=== PATIENT | male | born 1950 | race Caucasian/White ===

== ENCOUNTER → 2016-11-22 | Outpatient (CLI) | payer MEDICARE, OTHER ==
[~2016-11-22] MED LIST: ALEVE220 MG PO; ALLEGRA 180MG180 MG PO; AMOXICILLIN 8751 TAB PO; ASPIR-LOW81 MG PO; ASPIRIN E.C. 8181 MG PO; BYSTOLIC5 MG PO; CARDURA 2MG2 MG PO; CELEBREX; CELEBREX100 MG PO; CLARITIN; CLARITIN10 MG PO; COZAAR100 MG PO; DECADRON 1MG TAB1 MG PO; FLEXERIL 1010 MG/TAB PO; LABETALOL100 MG PO; LORTAB 5/500 501 TAB PO; LOTREL 10 MG-201 CAP PO; MILK OF MA400 MG/52 PO; MOTRIN 800800 MG/TAB PO; NAPROSYN500 MG PO; NORCO 325 MG-51 TAB PO; NORCO 325 MG-7.1 TAB PO; NORMODYNE100 MG PO; NORVASC 10MG10 MG PO; OCUVITE1 TA1 PO; PERCOCET 325 MG1 TAB PO; PRIL40 PO; PRILOSEC 20MG20 MG PO; PROAIR HFA0.09 MG/AC IH; ROXICODONE 55 MG/TAB PO; RT SPIRIVA18 MCG IH; SENOKOT8.6 MG PO; TYLENOL 500MG500 MG PO; VICODIN 5/5001 UDTAB PO; XARELTO10 MG PO
== END ==
LOC: MC.RAD 13:49
DX: N62 Hypertrophy of breast (principal)

== ENCOUNTER → 2016-12-05 | Outpatient (CLI) | payer MEDICARE, OTHER | LOC: COL.PUL 12:52 | DX: J44.9 Chronic obstructive pulmonary disease, unspecified (principal); Z87.891 Personal history of nicotine dependence ==

== ENCOUNTER → 2016-12-08 | Outpatient (CLI) | payer MEDICARE, OTHER | LOC: COL.RAD 10:30 | DX: M25.552 Pain in left hip (principal) | CPT/HCPCS: J3301; Q9967 ==

== ENCOUNTER → 2017-02-06 | Outpatient (CLI) | payer MEDICARE, OTHER | LOC: COL.RAD 02-02 13:30 | DX: M54.5 Low back pain (principal); M25.552 Pain in left hip; M48.06 Spinal stenosis, lumbar region; Z98.890 Other specified postprocedural states ==

== ENCOUNTER → 2017-10-04 | Outpatient (CLI) | payer MEDICARE, OTHER | LOC: SUN.DIA 09-14 13:38 | DX: E11.9 Type 2 diabetes mellitus without complications (principal); E78.5 Hyperlipidemia, unspecified; I11.9 Hypertensive heart disease without heart failure; E66.9 Obesity, unspecified; Z68.39 Body mass index [BMI] 39.0-39.9, adult; Z71.3 Dietary counseling and surveillance; Z87.891 Personal history of nicotine dependence | CPT/HCPCS: G0108 ==

== ENCOUNTER → 2017-11-10 | Outpatient (CLI) | payer MEDICARE, OTHER | LOC: SUN.DIA | DX: E11.9 Type 2 diabetes mellitus without complications (principal); E78.5 Hyperlipidemia, unspecified; I11.9 Hypertensive heart disease without heart failure; E66.9 Obesity, unspecified; Z68.41 Body mass index [BMI] 40.0-44.9, adult; Z71.3 Dietary counseling and surveillance; Z87.891 Personal history of nicotine dependence ==

== ENCOUNTER → 2017-11-20 | Outpatient (CLI) | payer MEDICARE, OTHER | LOC: COL.VAS 10:13 | DX: I08.3 Combined rheumatic disorders of mitral, aortic and tricuspid valves (principal); R06.02 Shortness of breath ==

== ENCOUNTER 2017-12-08 11:09 | Day surgery (SDC) | payer MEDICARE, OTHER ==
[2017-12-08] VITALS (10 sets, daily range): BP systolic 127–153; BP diastolic 58–75; PULSE 76–86; TEMP 97.7–98.5
[~2017-12-08] VITALS: Ht 177.8 cm; Wt 124.4 kg
[2017-12-08] MEDS ORDERED: FLEXERIL 1010 MG/TAB PO (12:15)
[2017-12-08] MEDS ORDERED: ALLEGRA 180MG180 MG PO (12:17)
[2017-12-08] MEDS ORDERED: FLONASEALLERGY NS (12:18)
[2017-12-08] MEDS ORDERED: CLARITIN 1010 MG/TAB PO (12:22)
[2017-12-08] MEDS ORDERED: HYZAAR 25 MG-101 TAB PO (12:27)
[2017-12-08] MEDS ORDERED: GLUCOPHAGE1000 MG PO (12:29)
[2017-12-08] MEDS ORDERED: BYSTOLIC10 MG PO (12:30)
[2017-12-08] MEDS ORDERED: VIAGRA50 M1 (12:32)
[2017-12-08] MEDS ORDERED: KENALOG-1010 MG/ML TOP (12:34)
[2017-12-08] MEDS ORDERED: TRELEGY ELLIPT1 EACH IH (12:35)
[2017-12-08] MEDS ORDERED: JANUVIA 100MG100 MG PO (12:35)
[2017-12-09] VITALS (7 sets, daily range): BP systolic 136–177; BP diastolic 64–80; PULSE 74–88; TEMP 97.3–99
[2017-12-10 03:54] VITALS: BP 148/72; PULSE 83; TEMP 98.8
[2017-12-10 08:21] VITALS: BP 151/67; PULSE 86; TEMP 98.1
== END 2017-12-10 11:20 | disposition home or self-care (01) ==
LOC: SDCO 11:09 → JCC 14:50 → SDCO 12-10 11:20
DX: N40.1 Benign prostatic hyperplasia with lower urinary tract symptoms (principal); N13.8 Other obstructive and reflux uropathy; R35.0 Frequency of micturition; R39.12 Poor urinary stream; I10 Essential (primary) hypertension; Z87.891 Personal history of nicotine dependence
CPT/HCPCS: OP; J0690; J2270; J2405; J2704; J3010; J3480; J7030

== ENCOUNTER 2018-03-06 16:27 | Observation (INO) | payer MEDICARE, OTHER ==
[2018-03-06] VITALS (9 sets, daily range): BP systolic 98–165; BP diastolic 63–99; PULSE 81–95; TEMP 98
[~2018-03-06] VITALS: Ht 177.8 cm; Wt 123.9 kg
[~2018-03-06 16:27] MED LIST changes: +BYSTOLIC10 MG PO; +CLARITIN 1010 MG/TAB PO; +FLONASEALLERGY NS; +GLUCOPHAGE1000 MG PO; +HYZAAR 25 MG-101 TAB PO; +JANUVIA 100MG100 MG PO; +KENALOG-1010 MG/ML TOP; +TRELEGY ELLIPT1 EACH IH; +VIAGRA50 M1
[2018-03-06] MEDS ORDERED: PROAIR HFA0.09 MG/AC IH (17:45)
[2018-03-06] MEDS ORDERED: CARDURA 2MG2 MG PO (17:57)
[2018-03-06] MEDS ORDERED: BIOFREEZE 0.2%-1 GE1 TOP (17:58)
[2018-03-06] MEDS ORDERED: PERCOCET 325 MG1 TAB PO (17:59)
[2018-03-06] MEDS ORDERED: FLOMAX 0.40.4 MG/CAP PO (17:59)
[2018-03-06] MEDS ORDERED: TRIAM OI 15 0.025 TOP (18:03)
[2018-03-06] MEDS ORDERED: VTAMINC250TA PO (18:03)
[2018-03-07] VITALS: BP 143/65; PULSE 89; TEMP 97.3
[2018-03-07 04:00] VITALS: BP 124/65; PULSE 82; TEMP 97.5
[2018-03-07 07:47] VITALS: BP 138/67; PULSE 84; TEMP 98.6
== END 2018-03-07 13:26 | disposition home or self-care (01) ==
LOC: SDCO 16:27 → SURG 16:28 → SDCO 17:00 → SURG 18:04
DX: N32.0 Bladder-neck obstruction (principal); R33.9 Retention of urine, unspecified; L50.0 Allergic urticaria; E11.9 Type 2 diabetes mellitus without complications; I10 Essential (primary) hypertension; N41.9 Inflammatory disease of prostate, unspecified; R33.8 Other retention of urine; J44.9 Chronic obstructive pulmonary disease, unspecified; G47.33 Obstructive sleep apnea (adult) (pediatric); M19.90 Unspecified osteoarthritis, unspecified site; Z96.653 Presence of artificial knee joint, bilateral; Z79.84 Long term (current) use of oral hypoglycemic drugs; Z88.6 Allergy status to analgesic agent; Z87.891 Personal history of nicotine dependence
CPT/HCPCS: C1769; G0378; J0690; J1100; J2405; J2704; J3010; J3301

== ENCOUNTER → 2018-03-22 | Outpatient (CLI) | payer MEDICARE, OTHER ==
[~2018-03-22] MED LIST changes: +BIOFREEZE 0.2%-1 GE1 TOP; +FLOMAX 0.40.4 MG/CAP PO; +TRIAM OI 15 0.025 TOP; +VTAMINC250TA PO
== END ==
LOC: COL.VAS 08:46
DX: I73.9 Peripheral vascular disease, unspecified (principal)

== ENCOUNTER 2018-12-01 20:18 | Emergency (ER) | payer MEDICARE, OTHER ==
[~2018-12-01] VITALS: Ht 177.8 cm; Wt 123.2 kg
[2018-12-01 20:33] VITALS: BP 139/75; TEMP 97
[2018-12-01 21:18] VITALS: PULSE 106
== END 2018-12-01 21:15 | disposition home or self-care (01) ==
LOC: COL.ER 20:18
DX: S61.214A Laceration without foreign body of right ring finger without damage to nail, initial encounter (principal); W25.XXXA Contact with sharp glass, initial encounter; Y92.009 Unspecified place in unspecified non-institutional (private) residence as the place of occurrence of the external cause

== ENCOUNTER 2021-01-23 13:59 | Emergency (ER) | payer MEDICARE, OTHER ==
[~2021-01-23] VITALS: Ht 25.4 cm; Wt 108.6 kg
[2021-01-23 14:09] VITALS: TEMP 97.9
[2021-01-23 14:57] LABS: BASO % 0.2 % (0.0-2.0); EOS # 0.2 (0.0-0.7); GRAN # 5.4 (1.4-6.5); GRAN % 66.7 % (42.2-75.2); HEMATOCRIT 37.8 % (42.0-52.0); HEMOGLOBIN 12.2 g/dl (13.5-18.0); LYMPH # 1.8 (1.2-3.4); LYMPH % 22.4 % (20.0-51.0); MEAN CELL VOLUME 79 fl (80.0-100.0); MEAN CORPUSCULAR HEMOGLOBIN 26 pg (27.0-31.0); MEAN CORPUSCULAR HGB CONC 32 g/dl (33.0-37.0); MONO # 0.7 (0.1-0.6); MONO % 8.3 % (1.7-9.3); PLATELET COUNT 263 K/mm3 (130-400); RED BLOOD COUNT 4.77 M/mm3 (4.20-5.60); REDCELL DISTRIBUTION WIDTH-CV 15.3 % (11.5-14.5)
[2021-01-23 15:09] LABS: ALANINE AMINOTRANSFERASE 26 U/L (4-49); ALKALINE PHOSPHATASE 40 U/L (50-136); ANION GAP 9 mmol/L (7-16); AST,SGOT 40 U/L (15-37); BILIRUBIN,TOTAL 0.8 mg/dL (0.0-1.0); BLOOD UREA NITROGEN 12 mg/dL (9-20); CALCIUM 8.9 mg/dL (8.4-10.2); CARBON DIOXIDE 22 mmol/L (22-30); CHLORIDE 103 mmol/L (98-107); CREATININE, serum 0.76 (0.66-1.25); GLUCOSE 99 mg/dL (74-106); POTASSIUM 4.4 mmol/L (3.4-5.0); SODIUM 133 mmol/L (137-145); TOTAL PROTEIN 6.5 gm/dL (6.4-8.2)
[2021-01-23 15:23] LABS: TROPONIN-I < 0.012 ng/mL (0.000-0.035)
[2021-01-23 15:44] LABS: ALBUMIN 3.7 gm/dL (3.5-5.0)
[2021-01-23 16:48] VITALS: BP 141/66; PULSE 84
== END 2021-01-23 16:48 | disposition home or self-care (01) ==
LOC: COL.ER 13:59
PROVIDERS: Emergency Medicine
DX: M79.89 Other specified soft tissue disorders (principal); R79.89 Other specified abnormal findings of blood chemistry; R60.0 Localized edema; I10 Essential (primary) hypertension; E11.9 Type 2 diabetes mellitus without complications; J44.9 Chronic obstructive pulmonary disease, unspecified; Z87.891 Personal history of nicotine dependence; Z96.653 Presence of artificial knee joint, bilateral; Z88.6 Allergy status to analgesic agent; Z79.84 Long term (current) use of oral hypoglycemic drugs; Z79.51 Long term (current) use of inhaled steroids; Z79.899 Other long term (current) drug therapy
CPT/HCPCS: J1940

== ENCOUNTER 2021-08-24 07:03 | Day surgery (SDC) | payer MEDICARE, OTHER ==
[~2021-08-24] VITALS: Ht 177.8 cm; Wt 121.2 kg
[2021-08-24] VITALS (148 sets, daily range): BP systolic 138–176; BP diastolic 76–96; PULSE 82–90; TEMP 97.6; O2SAT 86–97
[~2021-08-24 07:03] MED LIST changes: +VIAGRA100 M1 PO; -VIAGRA50 M1
[2021-08-24 08:31] LABS: HEMOGLOBIN 11.9 g/dl (13.5-18.0); MEAN CELL VOLUME 81 fl (80.0-100.0); MEAN CORPUSCULAR HEMOGLOBIN 26 pg (27-31); MEAN CORPUSCULAR HGB CONC 32 g/dl (33.0-37.0); MEAN PLATELET VOLUME 9.8 fl (7.4-10.4); PLATELET COUNT 209 K/mm3 (130-400); RED BLOOD COUNT 4.57 M/mm3 (4.20-5.60); REDCELL DISTRIBUTION WIDTH-CV 16.7 % (11.5-14.5)
[2021-08-24 08:33] LABS: HEMATOCRIT 36.8 % (42.0-52.0)
[2021-08-24 08:43] LABS: INR 1.1 (0.8-3.0); PROTHROMBIN TIME 12.5 SECONDS (9.7-12.8)
[2021-08-24 08:45] LABS: CALCIUM 8.5 mg/dL (8.4-10.2); CREATININE, serum 0.86 mg/dL (0.72-1.25); POTASSIUM 4.7 mmol/L (3.5-4.5)
[2021-08-24 08:45] LABS: PARTIAL THROMBOPLASTIN TIME 29.8 SECONDS (26.0-37.0)
[2021-08-24] MEDS ORDERED: ZEBETA10 MG PO (09:05)
[2021-08-24] MEDS ORDERED: HYGROTON 2525 MG/TAB PO (09:09)
[2021-08-24] MEDS ORDERED: PEPCID 20MG TAB20 MG PO (09:12)
[2021-08-24] MEDS ORDERED: RT SPIRIVA18 MCG IH (09:15)
[2021-08-24] MEDS ORDERED: ALTACE 10MG TAB10 MG PO (09:15)
[2021-08-24] MEDS ORDERED: K-DUR20 MEQ PO (09:16)
[2021-08-24] MEDS ORDERED: SINGULAIR 110 MG/TAB PO (09:17)
[2021-08-24] MEDS ORDERED: RT ADVAIR 228 DISKUS IH (09:18)
[2021-08-24] MEDS ORDERED: REQUIP 1MG T1 MG/TAB PO (09:19)
[2021-08-24] MEDS ORDERED: MAG-OX 400400 MG/TAB PO (09:20)
[2021-08-24] MEDS ORDERED: APRESOLINE50 MG PO ×2 (09:21→11:23)
[2021-08-24] MEDS ORDERED: NEURONTIN100 MG/CAP PO (09:22)
[2021-08-24] MEDS ORDERED: NEURONTIN300 MG/CAP PO (09:23)
[2021-08-24] MEDS ORDERED: LASIX 20MG TABL20 MG PO (09:24)
[2021-08-24] MEDS ORDERED: EPIPEN 2-PAK1 MG/ML IM (09:24)
[2021-08-24] MEDS ORDERED: TRULICITY0.75 MG/0. SQ (09:24)
[2021-08-24] MEDS ORDERED: CYCLOSPORINE100 MG PO (09:25)
--- NOTE | 2021-08-24 09:32 | NUR ---
SEE MERGE DOCUMENTATION FOR MEDICATION ADMINISTRATION AND INTRA/POST PROCEDURE SEDATION ASSESSMETNS.
--- NOTE | 2021-08-24 11:24 | NUR ---
Report to Robert Lane.
[2021-08-24] MEDS ORDERED: DEMADEX 20MG20 M1 PO (11:25)
[2021-08-24] MEDS ORDERED: ALDACTONE 25MG25 M1 PO (11:26)
--- NOTE | 2021-08-24 11:30 | NUR ---
Pt care assumed from Lisset VALENCIA. BS report received. Pt is awake and alert, pwd, some grunting with respirations, resp rate approx 20/min. TR band in place, cms intact distal. Rt groin site soft, dressing is clean and dry, cms intact distal. 1/2 ns infusing at 100 cc/hr via pump... pt aware of order for 4 hrs of this infusion at this rate. at bs. call light in reach.
--- NOTE | 2021-08-24 15:00 | NUR ---
Pt has done well during his recovery. Pt did receive IV bumex 1 hour after fluids were started, and pt had 1400 cc out in 2 voids. Pt reports feels like breathing easier at time of departure, than he was on arrival. TR band was deflated wtih no problem. site dressed with bandaid, folded 2x2 and coban. Rt groin site unchanged. Pt denies pain, site is soft and dressing is dry. cms intact distal. I reviewed dc/fu and rx instructions with pt and . both verbalize understnading. IV is dc'd with cath intact, dressing applied. Pt amb in room with steady gait. to exit via wheelchair at 1523
== END 2021-08-24 15:30 | disposition home or self-care (01) ==
LOC: COL.CAR 07:03
PROVIDERS: Internal Medicine Cardiovascular Disease
DX: R07.9 Chest pain, unspecified (principal); R06.02 Shortness of breath; I27.20 Pulmonary hypertension, unspecified; I10 Essential (primary) hypertension; E66.8 Other obesity; K21.9 Gastro-esophageal reflux disease without esophagitis; E78.1 Pure hyperglyceridemia; J43.8 Other emphysema; G47.33 Obstructive sleep apnea (adult) (pediatric); M47.816 Spondylosis without myelopathy or radiculopathy, lumbar region; M17.12 Unilateral primary osteoarthritis, left knee; N40.0 Benign prostatic hyperplasia without lower urinary tract symptoms; R73.03 Prediabetes; Z79.899 Other long term (current) drug therapy; Z87.891 Personal history of nicotine dependence; Z99.89 Dependence on other enabling machines and devices; Z79.84 Long term (current) use of oral hypoglycemic drugs; Z90.89 Acquired absence of other organs
CPT/HCPCS: C1769; C1894; J1644; J2250; J3010

== ENCOUNTER 2022-08-10 21:08 | Observation (INO) | payer MEDICARE, OTHER ==
[~2022-08-10] VITALS: Ht 177.8 cm; Wt 120.0 kg
[~2022-08-10 21:08] MED LIST changes: +ALDACTONE 25MG25 M1 PO; +ALTACE 10MG TAB10 MG PO; +APRESOLINE50 MG PO; +CYCLOSPORINE100 MG PO; +DEMADEX 20MG20 M1 PO; +EPIPEN 2-PAK1 MG/ML IM; +HYGROTON 2525 MG/TAB PO; +K-DUR20 MEQ PO; +LASIX 20MG TABL20 MG PO; +MAG-OX 400400 MG/TAB PO; +NEURONTIN100 MG/CAP PO; +NEURONTIN300 MG/CAP PO; +PEPCID 20MG TAB20 MG PO; +PREDNISONE10 MG PO; +REQUIP 1MG T1 MG/TAB PO; +RT ADVAIR 228 DISKUS IH; +SINGULAIR 110 MG/TAB PO; +TRULICITY0.75 MG/0. SQ; +ZEBETA10 MG PO
[2022-08-10 21:48] LABS: BASO % 0.2 % (0.0-2.0); EOS # 0.1 K/mm3 (0.0-0.7); EOS % 0.8 % (0.0-4.0); GRAN % 81.5 % (42.2-75.2); HEMATOCRIT 36.7 % (42.0-52.0); HEMOGLOBIN 13.1 g/dl (13.5-18.0); MEAN CELL VOLUME 90 fl (80.0-100.0); MEAN CORPUSCULAR HEMOGLOBIN 32 pg (27-31); MEAN CORPUSCULAR HGB CONC 36 g/dl (33.0-37.0); MEAN PLATELET VOLUME 8.9 fl (7.4-10.4); MONO # 0.6 K/mm3 (0.1-0.6); MONO % 6.4 % (1.7-9.3); PLATELET COUNT 198 K/mm3 (130-400); RED BLOOD COUNT 4.09 M/mm3 (4.20-5.60); REDCELL DISTRIBUTION WIDTH-CV 13.1 % (11.5-14.5)
[2022-08-10 21:57] LABS: ALBUMIN 3.7 gm/dL (3.4-4.8); BILIRUBIN,TOTAL 1.4 mg/dL (0.2-1.2); CALCIUM 9.2 mg/dL (8.4-10.2); CREATININE, serum 1.44 mg/dL (0.72-1.25); POTASSIUM 4.9 mmol/L (3.5-4.5); TOTAL PROTEIN 6.5 gm/dL (6.2-8.1)
[2022-08-10 22:03] LABS: TROPONIN-I 0.024 ng/mL (0.00-0.033)
[2022-08-10] MEDS ORDERED: NEORAL100 MG PO (22:58)
[2022-08-10] MEDS ORDERED: ALTACE 10MG TAB10 MG PO (23:01)
[2022-08-10] MEDS ORDERED: APRESOLINE50 MG PO (23:03)
[2022-08-10] MEDS ORDERED: ALDACTONE 25MG25 M1 PO (23:04)
[2022-08-10] MEDS ORDERED: ZYLOPRIM 100MG100 MG PO (23:05)
[2022-08-10] MEDS ORDERED: REQUIP 1MG T1 MG/TAB PO (23:05)
[2022-08-10] MEDS ORDERED: PROAIR HFA0.09 MG/AC IH (23:06)
[2022-08-10] MEDS ORDERED: TRELEGY ELLIPT1 EAC1 IH (23:06)
[2022-08-10] MEDS ORDERED: ATROVENTNS0.03% NS (23:12)
[2022-08-10] MEDS ORDERED: NITROSTAT0.4 MG/TAB SL (23:13)
[2022-08-10] MEDS ORDERED: PREDFORTE5ML OP (23:13)
[2022-08-10] MEDS ORDERED: ACULAR 10 ML10 ML OS (23:15)
[2022-08-11] VITALS (9 sets, daily range): BP systolic 143–174; BP diastolic 69–88; PULSE 73–116; TEMP 97.3–98.3
[2022-08-11 01:03] LABS: PHOSPHOROUS 4.3 mg/dL (2.3-4.7)
[2022-08-11 02:17] LABS: TSH w REFLEX 1.157 uIU/mL (0.350-4.940)
[2022-08-11 05:07] LABS: COLLECTION METHOD CLEAN CATCH
[2022-08-11 05:26] LABS: PH 5.5 (5.0-8.5); SQUAMOUS EPITHELIAL 0-2 /hpf (0-10); URINE APPEARANCE Clear (CLEAR/HAZY); URINE BACTERIA None Seen /hpf (NONE SEEN); URINE BLOOD Negative (NEGATIVE); URINE COLOR Yellow (YELLOW); URINE GLUCOSE Negative (NEGATIVE); URINE KETONE Negative (NEGATIVE); URINE NITRATE Negative (NEGATIVE); URINE PROTEIN(semi-quant) Negative (NEGATIVE); URINE RBC None Seen /hpf (0-2); URINE UROBILINOGEN 0.2 E.U/dL (0.2-1.0)
--- NOTE | 2022-08-11 06:28 | NUR ---
THIS PATIENT WAS BROUGHT UP FROM ED. PATIENT IS A&O X3 AND NEURO CHECKS HAVE HAD NO ABNORMALITIES. PATIENT DENIES FURTHER QUESTIONS OR CONCERNS AT THIS TIME
[2022-08-11 07:04] LABS: HEMATOCRIT 37.3 % (42.0-52.0); HEMOGLOBIN 12.6 g/dl (13.5-18.0); MEAN CELL VOLUME 94 fl (80.0-100.0); MEAN CORPUSCULAR HEMOGLOBIN 32 pg (27-31); MEAN CORPUSCULAR HGB CONC 34 g/dl (33.0-37.0); MEAN PLATELET VOLUME 9.5 fl (7.4-10.4); PLATELET COUNT 187 K/mm3 (130-400); RED BLOOD COUNT 3.99 M/mm3 (4.20-5.60)
[2022-08-11 07:24] LABS: CALCIUM 8.9 mg/dL (8.4-10.2); CREATININE, serum 1.27 mg/dL (0.72-1.25)
[2022-08-11 08:04] LABS: BAND 5 % (0-10); LYMPHOCYTE 4 % (20.0-51.0); NEUTROPHILS 90 % (42.0-75.2); PLATELET ESTIMATE NORMAL (NORMAL)
--- NOTE | 2022-08-11 15:17 | NUR ---
CAITIE met with the patient and his , Alysha (ph#[phone]), to discuss discharge plan. The patient lives in [place] with his . He reports independence with ADLs and has a cane and walker available, if needed. He states that he had home oxygen from [employer], but they were extremely unhappy with their services and decided to not renew their contract with them. They state that the equipment does not work and is broken. He has tried to get it fixed at a different [employer] company in [place], but since he did not receive the equipment from them, they are unable to fix them. He states that Sissy, at [facility], sent a new oxygen script to [facility] and they have just not followed up on this. They provide that the patient also has a bipap machine at home, but he did not qualify for it at his last study, so they had to private pay for one. They state that the mask for it does not fit him and the machine is broken. The patient's PCP is Dr. Lexie Gao and he receives his medications from [place]. The patient does not have a DPOA-HC and he was not interested in completing one at this time. The patient plans to return home with his upon discharge. CAITIE contacted Cuong at [facility]. Cuong states that they do have a script from ENT for a portable oxygen concentrator, but not home oxygen. He states that they would just need an exercise oximetry and script for the home oxygen. He states that if the patient is wanting to get a bipap through them, then they would need a script and all the patient's sleep studies for it. SW updated the patient and his on this. The patient's reiterated how the patient did not qualify for a bipap during his last study. She inquired if he could have another sleep study done as an outpatient for one. CAITIE updated the PA on this. *Discharge plan: home with . Will need home oxygen set up through [facility]*
--- NOTE | 2022-08-11 16:25 | NUR ---
Sena: [employer] Situation: operations management trainee went by room on rounds Background: Pt was resting and content Assessment: No needs right now. Pt appreciated the visit Recommendation: operations management trainee will follow up as needed
[2022-08-12] VITALS (13 sets, daily range): BP systolic 142–187; BP diastolic 68–108; PULSE 92–109; TEMP 97.7–98.3
--- NOTE | 2022-08-12 06:40 | NUR ---
in bed sitting upright, appears to be sleeping, bedside shift report received from ANNIE Alatorre
[2022-08-12 06:45] LABS: HEMOGLOBIN 12.6 g/dl (13.5-18.0); MEAN CELL VOLUME 93 fl (80.0-100.0); MEAN CORPUSCULAR HEMOGLOBIN 32 pg (27-31); MEAN CORPUSCULAR HGB CONC 34 g/dl (33.0-37.0); MEAN PLATELET VOLUME 9.5 fl (7.4-10.4); PLATELET COUNT 212 K/mm3 (130-400); RED BLOOD COUNT 3.97 M/mm3 (4.20-5.60); REDCELL DISTRIBUTION WIDTH-CV 13.2 % (11.5-14.5)
[2022-08-12 06:50] LABS: HEMATOCRIT 36.9 % (42.0-52.0)
--- NOTE | 2022-08-12 06:55 | NUR ---
awake resting in bed, bedside shift report received from ANNIE Li
[2022-08-12 06:58] LABS: CALCIUM 9.2 mg/dL (8.4-10.2); POTASSIUM 4.9 mmol/L (3.5-4.5)
[2022-08-12 07:27] LABS: BAND 3 % (0-10); LYMPHOCYTE 4 % (20.0-51.0); NEUTROPHILS 89 % (42.0-75.2)
[2022-08-12 07:28] LABS: PLATELET ESTIMATE NORMAL (NORMAL)
--- NOTE | 2022-08-12 08:00 | NUR ---
awake resting in bed, full assessment completed, see interventions for further info, BP reviewed,
--- NOTE | 2022-08-12 09:15 | NUR ---
sitting up in bed eating breakfast, denies needs
[2022-08-12] MEDS ORDERED: DEMADEX10 MG PO (09:36)
--- NOTE | 2022-08-12 09:45 | NUR ---
Dr Del Angel was in to see patient, BP now is 158/71
--- NOTE | 2022-08-12 11:00 | NUR ---
assisted up to bathroom, then back to bed independently, family at bedside
--- NOTE | 2022-08-12 11:40 | NUR ---
Dr Coleman and care team in to see patient
--- NOTE | 2022-08-12 13:00 | NUR ---
resting in bed, at bedside
--- NOTE | 2022-08-12 14:00 | NUR ---
cardiopulmonary in to complete EEG, called nurse to room and states IV site is bleeding, INT catheter is out and discontinued, will restart after EEG
--- NOTE | 2022-08-12 16:03 | NUR ---
The clinical team is ready to discharge the patient. An exercise oximetry was ordered. The patient qualified for 2 liters. CAITIE contacted and faxed the oxygen order to [facility] at [facility]. [facility]ong states that they will deliver the oxygen to the patient's room. CAITIE contacted and updated the patient. He is in agreement to the plan. CAITIE updated the patient's RN.
--- NOTE | 2022-08-12 17:44 | NUR ---
Dr Shay was in to seepateint earlier, patient and awaiting discharge orders, encouraged to have supper before leaving
[2022-08-12] MEDS ORDERED: ZITHROMAX500 M2 PO ×2 (18:20→19:29)
[2022-08-12] MEDS ORDERED: NORVASC 10MG10 MG PO ×2 (18:21→19:29)
[2022-08-12] MEDS ORDERED: CATAPRES 0.1MG0.1 MG PO ×2 (18:21→19:29)
[2022-08-12] MEDS ORDERED: PREDNISONE10 MG PO ×2 (18:30→19:29)
--- NOTE | 2022-08-12 18:55 | NUR ---
bedside shift report given to ANNIE Boyd
--- NOTE | 2022-08-12 19:08 | NUR ---
discharge instructions given to patient and his , verbalizes understanding
--- NOTE | 2022-08-12 19:09 | NUR ---
discharged per WC
== END 2022-08-12 19:09 | disposition home or self-care (01) ==
LOC: COL.ER 21:08 → MEDICAL 23:43 → EDBEDREQ 23:57 → MEDICAL 08-12 19:09
PROVIDERS: Emergency Medicine; Nurse Practitioner Family; ADMIT Internal Medicine
DX: J96.01 Acute respiratory failure with hypoxia (principal); J44.1 Chronic obstructive pulmonary disease with (acute) exacerbation; J96.11 Chronic respiratory failure with hypoxia; I27.20 Pulmonary hypertension, unspecified; N17.9 Acute kidney failure, unspecified; I11.9 Hypertensive heart disease without heart failure; E11.9 Type 2 diabetes mellitus without complications; Z20.822 Contact with and (suspected) exposure to COVID-19; E87.5 Hyperkalemia; E87.1 Hypo-osmolality and hyponatremia; E87.8 Other disorders of electrolyte and fluid balance, not elsewhere classified; D64.9 Anemia, unspecified; G47.33 Obstructive sleep apnea (adult) (pediatric); N40.0 Benign prostatic hyperplasia without lower urinary tract symptoms; N62 Hypertrophy of breast; J30.2 Other seasonal allergic rhinitis; Z79.899 Other long term (current) drug therapy; Z87.11 Personal history of peptic ulcer disease; Z79.85 Long-term (current) use of injectable non-insulin antidiabetic drugs; Z87.891 Personal history of nicotine dependence; Z91.198 Patient's noncompliance with other medical treatment and regimen for other reason
CPT/HCPCS: G0378; J0360; J0456; J0696; J1650; J1815; J2920; J2930; J7030; J7050; J7515

== ENCOUNTER → 2022-10-18 | Outpatient (CLI) | payer MEDICARE, OTHER ==
[~2022-10-18] MED LIST changes: +ACULAR 10 ML10 ML OS; +ATROVENTNS0.03% NS; +CATAPRES 0.1MG0.1 MG PO; +DEMADEX10 MG PO; +NEORAL100 MG PO; +NITROSTAT0.4 MG/TAB SL; +PREDFORTE5ML OP; +TRELEGY ELLIPT1 EAC1 IH; +ZITHROMAX500 M2 PO; +ZYLOPRIM 100MG100 MG PO
== END ==
LOC: COL.VAS 12:29
DX: I08.1 Rheumatic disorders of both mitral and tricuspid valves (principal); J44.9 Chronic obstructive pulmonary disease, unspecified; I27.20 Pulmonary hypertension, unspecified

== ENCOUNTER → 2022-10-24 | Outpatient (CLI) | payer MEDICARE, OTHER | LOC: COL.PUL 12:37 | DX: J44.9 Chronic obstructive pulmonary disease, unspecified (principal); I27.20 Pulmonary hypertension, unspecified ==